=== PATIENT | male | born 1955 | race African-American/Black ===

== ENCOUNTER 2017-08-19 06:39 | Day surgery (SDC) | payer MEDICARE, OTHER ==
[~2017-08-19 06:39] MED LIST: ALBU18HF2 IH; ALLO100T PO; AMIO200T PO; ATOR40TA70 PO; CLOP75TA33 PO; DIGO125T82 PO; FLUT1AER IH; FURO80TA3 PO; HYDR25TA PO; ISOS5TAB4 PO; METO-385 PO; METO5TAB69 PO; P20 PO; RANI150C12 PO; SPIR25TA4 PO; TRAM50TA3 PO; UMEC62.5 IH; VALS80TA25 PO
[2017-08-19] MEDS ORDERED: LIDOCAINE HCL 1% 20ML VIAL (Pyxis) INJ ONE (09:14)
[2017-08-19] MEDS ORDERED: IODIXANOL 320MG/ML 200ML BOTTLE ONE (09:14)
[2017-08-19] MEDS ORDERED: FENTANYL CITRATE/PF 50MCG/ML 2ML VIAL ONE (09:18)
[2017-08-19] MEDS ORDERED: MIDAZOLAM HCL 2 MG/2 ML VIAL ONE (09:18)
== END 2017-08-19 12:00 | disposition home or self-care (01) ==
LOC: CCL 06:39
PROVIDERS: ATTEND Specialist
DX: I73.9 Peripheral vascular disease, unspecified (principal); N28.89 Other specified disorders of kidney and ureter; M47.892 Other spondylosis, cervical region; I12.9 Hypertensive chronic kidney disease with stage 1 through stage 4 chronic kidney disease, or unspecified chronic kidney disease; N18.3 Chronic kidney disease, stage 3 (moderate); J44.9 Chronic obstructive pulmonary disease, unspecified; I13.0 Hypertensive heart and chronic kidney disease with heart failure and stage 1 through stage 4 chronic kidney disease, or unspecified chronic kidney disease; I50.22 Chronic systolic (congestive) heart failure; G47.33 Obstructive sleep apnea (adult) (pediatric); E78.4 Other hyperlipidemia; M10.9 Gout, unspecified; I48.92 Unspecified atrial flutter
CPT/HCPCS: 36245; 75710; C1760; C1769; C1893; J1644; J2250; J3010; J3490; Q9967